=== PATIENT | female | born 1980 ===

== ENCOUNTER 2019-12-16 22:15 | Emergency (ER) | payer SELFPAY ==
[2019-12-16 22:35] VITALS: BP 124/78; PULSE 121; RESP 15; TEMP 36.8; O2SAT 97; BMI 32.8
[2019-12-16 22:42] VITALS: RESP 18
--- NOTE | 2019-12-16 22:48 | XRR_ITS ---
PROCEDURE INFORMATION: Exam: XR Left Ankle Exam date and time: 12/16/2019 10:58 PM Age: 39 years old Clinical indication: Ankle; Left; Prior surgery; Surgery date: 6+ months; Surgery type: ? Infection; Patient HX: C/O pain x 3 weeks now w swelling denies new injury - surgery approx. 4 yrs ago TECHNIQUE: Imaging protocol: XR Left ankle. Views: 3 or more views. COMPARISON: No relevant prior studies available. FINDINGS: Bones/joints: No visible fracture, subluxation, or dislocation. 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 Pes planus. Soft tissues: No visible soft tissue swelling, emphysema, or radiopaque foreign body. XR/XR ankle LT min 3V* [id number] IMPRESSION: 1. No visible fracture. 2. 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 3. 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 4. Pes planus.
--- NOTE | 2019-12-16 22:49 | W.ED.EXTPRO ---
HPI - Extremity Problem General: Chief complaint: Extremity Injury, Lower Stated complaint: left ankle pain Time Seen by Provider: 12/16/19 22:45 History of Present Illness: HPI Narrative: Patient states left ankle to start hurting a lot the last week or so's been swelled last couple days when he go to work today because of the pain says he has a history of surgery on ankle and that she had some fractures it did get casted here about a year ago where she declined to have a cast put on. And she is wondering if she had refractured it but denies any current injury. MD Complaint: joint swelling and joint pain Onset (ago): day(s) Pain Consistency: constant Location: left and lower extremity Severity scale (1-10): 5 Quality: aching Exacerbating factors: weight bearing Associated symptoms: Reports no associated symptoms; Deny chest pain, fever(s) or rash Review of Systems Const: Denies: fever(s), chills or body aches Eyes: Denies: change in vision or blurry vision ENMT: Denies: throat pain or nasal congestion Card: Denies: chest pain or dyspnea on exertion Resp: Denies: dyspnea, productive cough or non-productive cough GI: Denies: abdominal pain, nausea or vomiting Musc: Reports: joint pain and joint swelling; Denies: extremity pain Skin/Breast: Denies: rash Neuro: Denies: headache(s) Psych: Denies: anxiety or depression Jacek/Lymph: Denies: easy bruising [facility] ED Female Reproductive History: Date of last menstrual period: 11/13/19 Physical Exam Const: COMMON NORMALS: no acute distress, average body habitus and patient oriented x3 HENMT: COMMON NORMALS: normocephalic HEAD & SCALP: normal to inspection and normocephalic FACE & SINUS: normal facial exam Eye: COMMON NORMALS: conjunctivae normal GENERAL EYE: appearance normal, both eyes and all related structures CONJUNCTIVA: Yes conjunctivae normal Neck/C-Spine: COMMON NORMALS: no JVD Chest: COMMONS NORMALS: normal inspection of the chest Resp: COMMON NORMALS: normal respiratory effort and clear to auscultation bilaterally AUSCULTATION: clear to auscultation bilaterally Cardio: COMMON NORMALS: no JVD and regular rhythm RATE: tachycardic RHYTHM: regular rhythm GI: COMMON NORMALS: Normal to inspection, nondistended, normoactive bowel sounds present Extremity: COMMON NORMALS: normal to inspection and full ROM NARRATIVE EXTREMITY EXAM: has good range of motion LEFT LOWER EXTREMITY: Yes ankle joint (Mild swelling tenderness lateral aspect surgical scars present) Neuro: COMMON NORMALS: patient oriented x3 Course Vital Signs: Vital signs: Vital Signs Temperature 98.2 F 12/16/19 22:35 Pulse Rate 121 H 12/16/19 22:35 Respiratory Rate 18 12/16/19 22:42 Blood Pressure 124/78 12/16/19 22:35 Pulse Oximetry 97 12/16/19 22:35 Coding Level of Care Code ED Senior Litigation Paralegal for Chg Fwd Exam Comprehensive
[2019-12-16 23:44] VITALS: RESP 18
--- NOTE | 2019-12-19 09:06 | DCPLANNER ---
avionics manager had message to schedule a follow up appointment for patient with ortho. avionics manager called the ortho clinic, spoke with Pat, gave clinic patients information. avionics manager was told that patients information would be printed and reviewed. Clinic will call patient with appointment information.
--- NOTE | 2019-12-21 17:03 | DCPLANNER ---
Patient has a follow up appointment scheduled for , December 28, 2019 at 8:[address] Mccloud. Clinic will call patient with appointment information.
--- NOTE | 2020-01-25 16:10 | DCPLANNER ---
Patient had a follow up appointment scheduled for 12.28.19 with ortho - patient did not attend the appointment.
== END 2019-12-16 23:44 | disposition home or self-care (01) ==
PROVIDERS: Emergency Provider Nurse Practitioner Family
DX: M25.572 Pain in left ankle and joints of left foot (principal)
CPT/HCPCS: 12345; 73610; 99281; 99282